=== PATIENT | male | born 1960 | race Caucasian/White ===

== ENCOUNTER → 2020-10-31 | Day surgery (SDC) | payer OTHER ==
[~2020-10-31] MED LIST: CIALIS5 MG PO; CLONAZEPAM 0.50.5 M1 PO; COLACE100 MG PO; FLOMAX0.4 MG PO; IBUPROFEN 600600 M1 PO; LAMICTAL100 MG PO; NORCO5 PO; PEPCID20 MG PO; REQUIP XL2 MG PO; STOOL SOFTENER100 MG PO; SUPER THERAVIT1 EACH PO; UNICOMPLEX M TA1 TA1 PO
--- NOTE | ~2020-10-31 | OP ---
[address] [address] OPERATIVE REPORT Name: RICK WELSH Room: [facility] Cordelia#: [id number] Admission: 10/31/20 Attend Phys: Kat Major DO Discharge: Date of : 56 Report #: [id number] THIS REPORT FOR: cc: Dante Brown MD,Dante Major,Kat Davalos DO ~ DATE OF SERVICE: 10/31/2020 PREOPERATIVE DIAGNOSIS: Bilateral inguinal hernia. POSTOPERATIVE DIAGNOSES: 1. Left direct inguinal hernia. 2. Left indirect inguinal hernia. 3. Right direct inguinal hernia. 4. Right cord lipoma. PROCEDURE: Laparoscopic bilateral inguinal herniorrhaphy with mesh. SURGEON: Kat Major DO ANESTHESIA: General endotracheal. ESTIMATED BLOOD LOSS: 25 mL. COMPLICATIONS: None. INDICATIONS FOR PROCEDURE: The patient is a 60-year-old gentleman who presented to my office with complaints of a left inguinal hernia pain and bulge. The patient was found to have bilateral inguinal herniorrhaphies on exam. The patient was explained the procedure including risks, benefits, alternatives. All questions were answered to patient's satisfaction and informed consent was obtained. DESCRIPTION OF PROCEDURE: The patient was brought back to the operating room and placed in supine position, general anesthesia was induced. SCDs were placed on bilateral extremities and prophylactic antibiotics were administered. Next, a Petersen catheter was placed and the abdomen was prepped and draped in the usual sterile fashion. Next, after a timeout was performed, the abdomen was accessed via an infraumbilical incision. Dissection was carried down to the anterior rectus sheath and a vertical incision was created on the anterior sheath just to the right of midline of the rectus muscle was swept laterally and the preperitoneal space was entered. Using a laparoscopic SpaceMaker, the preperitoneal space was balloon dissected and a Jodie trocar was then placed. The preperitoneal space was then insufflated and under direct visualization, two 5 mm trocars were placed in the preperitoneal space. [place] [address] OPERATIVE REPORT Name: RICK WELSH Room: [facility] M.R.#: [id number] Admission: 10/31/20 Attend Phys: Kat Major DO Discharge: Date of : 56 Report #: [id number] a little bit more adherent to the anterior abdominal wall and meticulous dissection was performed using a blunt Sterling graspers in order to tease the tissue and the peritoneum from the anterior abdominal wall. Next, attention was turned towards the right inguinal canal first, the pubic symphysis was identified and this was swept free laterally of all loose areolar tissues. Next, the patient was noted to have a medium sized direct inguinal hernia. All contents were reduced and placed in the preperitoneal space. Next, the cord structures were identified and meticulously dissected free. There was noted to be right cord lipoma, which was gently teased from the cord structures and was reduced. There was no evidence of a hernia sac in the indirect inguinal space. Next, the dissection was carried out laterally to the ASIS and the semilunaris line was taken down. Attention was then turned towards the left groin. There was noted to be a large direct inguinal hernia that was noted. All contents were brought down to the preperitoneal space. Meticulous dissection was performed until the cord structures were circumferentially dissected free. A medium sized indirect inguinal hernia was noted with the cord structures. This was reduced in a high ligation type fashion. The cord structures were identified, noting good vascularity. There was no left cord lipoma noted. At this time, due to the size of the left direct inguinal hernia, the hernia sac was then grasped by use of the absorbable PDS Endoloop and reduced the sac and placed an Endoloop at the base of the sac and ensured no impingement on any nerves or the cord structures. At this time, dissection was carried out laterally to ensure adequate space for a piece of mesh. At this time, a Bard 3DMax mesh, size large was selected for both left and right for repair. These were placed in the preperitoneal space, placed in the left mesh over the hernia defects. The mesh was tacked twice medially to Booker's ligament, once in the medial rectus muscle and an additional tack laterally. The right mesh was tacked in a similar fashion. 30 mL of local anesthetic were infiltrated into the preperitoneal space. The mesh lied in excellent position and was in the preperitoneal space was then desufflated under direct visualization, noting excellent positioning of the mesh. At this time, the trocars were removed. The posterior sheath was at the umbilical fascia was then incised and the pneumoperitoneum was allowed to release. The umbilical fascia was then closed in a figure of eight 0 Vicryl stitch and ilioinguinal block was then placed with 5 mL of local anesthetic on 1 cm medially and inferior to the ASIS bilaterally. At this time, the skin was then closed with 4-0 Monocryl in a subcuticular manner and Dermabond was applied for sterile dressing. All sponge and instrument count was reported as correct at the end of the case. The patient tolerated the procedure well without any complications. The Petersen catheter was removed in the operating room, both testicles [place] [address] OPERATIVE REPORT Name: RICK WELSH Room: [facility] M.R.#: [id number] Admission: 10/31/20 Attend Phys: Kat Major DO Discharge: Date of : 56 Report #: [id number] the scrotum. The patient was awakened from anesthesia in the operating room and taken to PACU in stable condition for further recovery. By: 1200 1235Clashae Major DO /nt
[2020-10-31 09:13] LABS: HEMATOCRIT 44.7 % (42.0-52.0); HEMOGLOBIN 15.3 gm/dL (14.0-18.0); MCH 29.5 pg (26.0-34.0); MCHC 34.2 g/dL (28.0-37.0); MCV 86.5 fL (80.0-100.0); MPV 9.1 fl. (7.2-11.1); RBC 5.17 mil/uL (4.50-6.00); RDW-CV 12.4 % (10.5-14.5); WBC 6.4 thou/uL (4.0-11.0)
[2020-10-31 09:21] LABS: CALCIUM 9.5 mg/dL (8.5-10.1); POTASSIUM 4.1 mmol/L (3.5-5.1)
--- NOTE | 2020-10-31 10:54 | EKG ---
[place] [address] ELECTROCARDIOGRAM REPORT Name: RICK WELSH Room: [facility].#: [id number] Admission: 10/31/20 Attend Phys: Kat Major, Discharge: Date of : 56 Date of Service: 10/31/20846 Report #: [id number] THIS REPORT FOR: //name// [facility] Test Date: 2020-10-31 Test Time: 08:47:49 Pat Name: RICK WELSH Department: Room: Gender: Director Nursing Service: : 1960 Requested By: Kat Major Order Number: [id number] Reading MD: Tu Townsend Measurements Intervals [place] Rate: 66 P: 58 VA: 176 QRS: 79 QRSD: 82 T: 49 QT: 385 QTc: 404 Interpretive Statements Sinus rhythm Borderline low voltage, extremity leads No previous ECG available for comparison Electronically Signed On 10-31-2020 10:53:55 CDT by Tu Townsend [email or web address] <ELECTRONICALLY SIGNED> By: Tu Townsend MD, [facility] 10/31/20 1053 6 Tu Townsend MD, FAC /EPI
== END | disposition home or self-care (01) ==
LOC: M.SUR 05:20
PROVIDERS: ATTEND Surgery
DX: K40.20 Bilateral inguinal hernia, without obstruction or gangrene, not specified as recurrent (principal); D17.6 Benign lipomatous neoplasm of spermatic cord; R10.9 Unspecified abdominal pain; Z79.899 Other long term (current) drug therapy; Z88.0 Allergy status to penicillin